=== PATIENT | male | born 1970 | race African-American/Black ===

== ENCOUNTER 2020-01-01 22:56 | Emergency (ER) | payer SELFPAY ==
[~2020-01-01] VITALS: Ht 167.6 cm; Wt 82.0 kg
[2020-01-01 23:43] VITALS: BP 155/108
== END 2020-01-02 00:19 | disposition home or self-care (01) ==
LOC: ER 22:56
DX: I10 Essential (primary) hypertension (principal); Z90.49 Acquired absence of other specified parts of digestive tract
CPT/HCPCS: 99281